=== PATIENT | female | born 1965 | race Caucasian/White ===

== ENCOUNTER 2020-04-03 02:24 | Emergency (ER) | payer SELFPAY ==
[~2020-04-03] VITALS: Ht 165.1 cm; Wt 72.6 kg
[~2020-04-03 02:24] MED LIST: AMLODIPINE BESY10 MG PO; EXFORGE 10 MG-31 TA1 PO; HYDROCODONE BIT1 T11 PO; METHADONE10 MG PO; METOPROLOL TART PO; MINOXIDIL2.5 MG PO; MOTRIN600 MG PO; MOTRIN800 MG PO; Motrin,Rufen800 MG PO; NORCO 325 MG-51 TAB PO; QUININE PO
[2020-04-03 02:30] VITALS: BP 186/90
[2020-04-03] MEDS ORDERED: ROBAXIN-750750 MG PO (02:48)
[2020-04-04] MEDS ORDERED: VALTREX1000 MG PO (15:35)
[2020-04-04] MEDS ORDERED: PREDNISONE20 M1 PO (15:35)
== END 2020-04-03 03:23 | disposition home or self-care (01) ==
LOC: ED 02:24
DX: M79.652 Pain in left thigh (principal); M79.605 Pain in left leg; Z88.0 Allergy status to penicillin; Z88.8 Allergy status to other drugs, medicaments and biological substances; Z79.899 Other long term (current) drug therapy; Z96.652 Presence of left artificial knee joint

== ENCOUNTER 2020-04-04 12:22 | Emergency (ER) | payer SELFPAY ==
[~2020-04-04] VITALS: Wt 72.6 kg
[~2020-04-04 12:22] MED LIST changes: +ROBAXIN-750750 MG PO
[2020-04-04 12:35] VITALS: BP 171/58
[2020-04-04] MEDS ORDERED: VALTREX1000 MG PO (15:35)
[2020-04-04] MEDS ORDERED: PREDNISONE20 M1 PO (15:35)
== END 2020-04-04 16:00 | disposition home or self-care (01) ==
LOC: ED 12:22
DX: B02.9 Zoster without complications (principal); M25.562 Pain in left knee; Z88.0 Allergy status to penicillin; Z88.8 Allergy status to other drugs, medicaments and biological substances

== ENCOUNTER → 2022-10-17 | Outpatient (CLI) | payer BC ==
[~2022-10-17] MED LIST changes: +PREDNISONE20 M1 PO; +VALTREX1000 MG PO
== END | disposition home or self-care (01) ==
LOC: US 08-14 10:00 → CT 08-14 11:00 → US 03:42
PROVIDERS: ATTEND Physician Assistant
DX: J98.11 Atelectasis (principal); I11.9 Hypertensive heart disease without heart failure; J43.9 Emphysema, unspecified; F17.210 Nicotine dependence, cigarettes, uncomplicated

== ENCOUNTER → 2022-10-25 | Outpatient (CLI) | payer BC | END | disposition home or self-care (01) | LOC: CARD 12:30 | PROVIDERS: ATTEND Physician Assistant | DX: R00.2 Palpitations (principal); M54.16 Radiculopathy, lumbar region ==

== ENCOUNTER → 2022-12-13 | Outpatient (CLI) | payer BC ==
[2022-12-13 10:26] LABS: HEMATOCRIT 43.2 % (37.0-47.0); MEAN CELL VOLUME 91.3 fl (81.0-99.0); MEAN CORPUSCULAR HGB 28.8 pg (27.0-31.0); MEAN CORPUSCULAR HGB CONC 31.5 g/dl (33.0-37.0); MEAN PLATELET VOLUME 10.8 fl (9.6-12.3); RED BLOOD COUNT 4.73 10*6/uL (4.10-5.10); RED CELL DISTRI WIDTH 14.7 % (0-14.5); WHITE BLOOD COUNT 6.7 10*3/uL (4.8-10.8)
[2022-12-13 11:01] LABS: ALKALINE PHOSPHATASE 86 U/L (46-116); BUN 23 mg/dl (9-23); CHLORIDE 110 mmol/L (98-107); CHOLESTEROL 237 mg/dL (<200); LDL CHOLESTEROL 157 mg/dL (9-159); POTASSIUM 4.6 mmol/L (3.4-5.1); SGPT/ALT 36 U/L (5-49); TOTAL PROTEIN 6.9 gm/dL (6.0-8.0); TRIGLYCERIDES 70 mg/dl (<150)
[2022-12-13 11:35] LABS: VITAMIN D, 25-HYDROXY 13.4 ng/mL (30-100)
== END | disposition home or self-care (01) ==
LOC: LAB 10:04
PROVIDERS: ATTEND Physician Assistant
DX: Z12.31 Encounter for screening mammogram for malignant neoplasm of breast (principal); I10 Essential (primary) hypertension; F17.200 Nicotine dependence, unspecified, uncomplicated; F17.210 Nicotine dependence, cigarettes, uncomplicated

== ENCOUNTER → 2024-07-15 | Outpatient (CLI) | payer BC | END | disposition home or self-care (01) | LOC: CT 15:42 | PROVIDERS: ATTEND Physician Assistant | DX: Z12.2 Encounter for screening for malignant neoplasm of respiratory organs (principal); I25.10 Atherosclerotic heart disease of native coronary artery without angina pectoris; J43.9 Emphysema, unspecified; R91.1 Solitary pulmonary nodule; F17.210 Nicotine dependence, cigarettes, uncomplicated ==